=== PATIENT | male | born 1975 | race Caucasian/White ===

== ENCOUNTER 2016-07-09 16:59 | Emergency (ER) | payer BC ==
--- NOTE | ~2016-07-09 | CR229 ---
[facility] A Service of [facility] RADIOLOGY TEXT RESULTS PATIENT: LUIS ANTONIO LOFTON LOCATION: SED : 74 UNIT #: [id number] AGE: [address]: Janiya Estrada SEX: M ORDER DR: [id number] [place] [id number] E MR#: [id number] Acc #: [id number] NAME: LUIS ANTONIO LOFTON. : 1975 SEX: M STUDY DATE/TIME: 07/09/2016 17:36 UNIT: SED ROOM: STUDY DESCRIPTION: CR Shoulder Min 2 View Lt Attending Physician: Janiya Estrada Pa-C Ordering Physician: Staff Doctor Not On Primary Care Physician: Jc Gaytan M.D. MEDICAL IMAGING REPORT This report is preliminary unless electronic signature is present. EXAM Left shoulder. DATE OF EXAM 07/09/2016 INDICATIONS 40-year-old male with left shoulder pain for 2 weeks-a month. No known injury. REPORT 2 views left shoulder. COMPARISON No comparisons. FINDINGS 2 views were provided. The examination is negative. No acute fracture, shoulder separation or secondary sign of dislocation. IMPRESSION 1. Negative. Dictated by... Obie Isaac M.D. THIS IS AN ELECTRONICALLY VERIFIED REPORT Obie Isaac M.D. at 07/09/2016 10:30 PM MARS/evangelist TD: 07/09/2016 22:09 JOB #: [id number] [facility] A Service of [facility] RADIOLOGY TEXT RESULTS PATIENT: LUIS ANTONIO LOFTON LOCATION: SED : 74 UNIT #: [id number] AGE: [address]: Janiya Estrada SEX: M ORDER DR: MEDICAL IMAGING REPORT Page 1 of 1
[~2016-07-09 16:59] MED LIST: ACETAMINOPHEN PO; ADVIL200 M1 PO; BACTROBAN22 GM; CLEOCIN150 MG PO; HYDROCODONE-A1 UDTA4 PO; IBUPROFEN PO; LEVEMIR FLEXPEN SUBQ; LEVEMIR100 UNITS/ SUBQ; NEURONTIN300 MG PO; NOVOLOG MIX 70/33 M1 SUBQ; NOVOLOG100 U/M1; PRILOSEC PO; VICODIN 5/1 TAB 5/50 PO; VOLTAREN75 MG PO
== END 2016-07-09 18:07 | disposition home or self-care (01) ==
LOC: SED 16:59
DX: M25.512 Pain in left shoulder (principal); E11.9 Type 2 diabetes mellitus without complications; F17.200 Nicotine dependence, unspecified, uncomplicated; Z79.4 Long term (current) use of insulin
CPT/HCPCS: 73030; 99283

== ENCOUNTER 2016-08-31 19:43 | Emergency (ER) | payer BC ==
--- NOTE | ~2016-08-31 | EKG ---
PATIENT: LUIS ANTONIO LOFTON UNIT #: [id number] Ventricular Rate: 72 BPM Atrial Rate: 72 BPM P-R Interval: 138 ms QRS Duration: 86 ms Q-T Interval: 416 ms QTC Calculation(Bezet): 455 ms P [place]: 80 degrees Calculated R [place]: -91 degrees Calculated T [place]: 66 degrees Diagnosis Line: Normal sinus rhythm Diagnosis Line: Right atrial enlargement Diagnosis Line: Right superior axis deviation Diagnosis Line: Pulmonary disease pattern Diagnosis Line: Abnormal ECG Diagnosis Line: When compared with ECG of 20-JAN-2016 21:12, Diagnosis Line: No significant change was found Diagnosis Line: Confirmed by HODA AREVALO MD ([id number]) on Diagnosis Line: 09/02/2016 10:32:17 AM INTERPRETING MD: MICKEY WHITE
--- NOTE | ~2016-08-31 | CR72 ---
[facility] A Service of [facility] RADIOLOGY TEXT RESULTS PATIENT: LUIS ANTONIO LOFTON LOCATION: [facility] : 74 UNIT #: [id number] AGE: [address]: Mitchell Hendrix MD SEX: M ORDER DR: [id number] [facility] [address] [place], [place] [address] [id number] E MR#: [id number] Acc #: [id number] NAME: LUIS ANTONIO LOFTON : 1975 SEX: M STUDY DATE/TIME: 08/31/2016 21:03 UNIT: [facility] ROOM: STUDY DESCRIPTION: CR Chest Single View Portable Attending Physician: Yannick Hendrix M.D. Ordering Physician: Edwin Chopra M.D. Primary Care Physician: Jc Gaytan M.D. MEDICAL IMAGING REPORT This report is preliminary unless electronic signature is present EXAM Portable chest, 08/31/2016 HISTORY Chest pain and blurred vision for 2 months. Smoking history for 15 years. FINDINGS A single AP portable view of the chest shows both lungs to be clear. The heart is normal in size. The mediastinal contour is normal. No significant bone abnormalities are seen. IMPRESSION Normal portable chest. Dictated by... Kimo Gonzalez M.D. THIS IS AN ELECTRONICALLY VERIFIED REPORT Kimo Gonzalez M.D. at 09/01/2016 2:20 PM KRT/lei TD: 09/01/2016 01:33 JOB #: [id number] MEDICAL IMAGING REPORT Page 1 of 1 COPY
[2016-08-31 21:04] LABS: BASOPHIL# 0.1 X10e3 (0-0.3); BASOPHIL% 0.9 % (0-2.5); DIFF IND NO; EOSINOPHIL# 0.2 X10e3 (0-0.7); EOSINOPHIL% 1.9 % (0.0-7.0); HEMATOCRIT 44.2 % (38.0-50.0); HEMOGLOBIN 14.5 gm/dL (13.0-16.0); LYMPHOCYTE# 2.9 X10e3 (1.0-3.5); LYMPHOCYTE% 26.2 % (17.0-45.0); MEAN CELL VOLUME 95.1 FL (83-96); MEAN CORPUSCULAR HEMOGLOBIN 31.2 PG (28-34); MEAN CORPUSCULAR HGB CONC 32.8 g/dL (30-36); MEAN PLATELET VOLUME 7.8 FL (6.5-11.5); MONOCYTE# 0.7 X10e3 (0-1.0); MONOCYTE% 6.3 % (3.0-12.0); NEUTROPHIL# 7.3 X10e3 (1.5-7.1); NEUTROPHIL% 64.7 % (40-75); PLATELET COUNT 334 X10e3 (140-420); RED BLOOD COUNT 4.65 X10e (3.90-5.60); RED CELL DISTRIBUTION WIDTH 13.8 % (11.0-15.5); WHITE BLOOD COUNT 11.2 X10e3 (4.0-10.5)
[2016-08-31 21:20] LABS: PARTIAL THROMBOPLASTIN TIME 25.3 SECONDS (23.5-31.3); PROTHROMBIN TIME (PATIENT) 10.4 SECONDS (10.0-11.7)
[2016-08-31 21:25] LABS: ALBUMIN SERUM 4.6 g/dL (3.5-5.0); BILIRUBIN, DIRECT 0.1 mg/dL (0.0-0.2); BILIRUBIN,INDIRECT 0.5 mg/dL (0.0-0.9); BILIRUBIN,TOTAL 0.6 mg/dL (0.2-2.0); CALCIUM SERUM 9.3 mg/dL (8.4-10.2); CREATININE SERUM 0.6 mg/dL (0.6-1.4); GLOM FILT RATE Estimated 124.1 mL/min (>60); POTASSIUM 4.1 mmol/L (3.5-5.1); PROTEIN TOTAL SERUM 7.8 g/dL (6.0-8.3)
[2016-08-31 22:17] LABS: POC - CKMB 1.4 ng/mL (0.0-7.9); POC - TROPONIN <0.05 ng/mL (<=0.05)
== END 2016-08-31 23:05 | disposition home or self-care (01) ==
LOC: CED 19:43
PROVIDERS: Emergency Medicine
DX: R07.9 Chest pain, unspecified (principal); E10.65 Type 1 diabetes mellitus with hyperglycemia; H53.8 Other visual disturbances; E78.5 Hyperlipidemia, unspecified; Z79.4 Long term (current) use of insulin
CPT/HCPCS: 36415; 71010; 80048; 80076; 82553; 84484; 85025; 85610; 85730; 93005; 99285